=== PATIENT | female | born 1975 | race American Indian/Alaskan Native ===

== ENCOUNTER 2018-06-09 16:36 | Emergency (ER) | payer SELFPAY ==
[2018-06-09 16:47] VITALS: BP 161/77
--- NOTE | 2018-06-09 17:58 | Emergency Department Report ---
ED Review of Systems ROS: Stated complaint: LEFT ELBOW INJURY Other details as noted in HPI ED Past Medical Hx - Past Medical History Previous Medical History?: No - Surgical History Past Surgical History?: Yes Additional Surgical History: , D&C - Social History Smoking Status: Current Every Day Smoker Substance Use Type: Alcohol Eye Injury Exam - Exam General: Vital signs noted. No distress. Alert and acting appropriately. ED Course Vital Signs 06/09/18 16:40 Temperature 98.4 F Pulse Rate 99 H Respiratory 16 Rate Blood Pressure 161/77 O2 Sat by Pulse 99 Oximetry Critical care attestation.: If time is entered above; I have spent that time in minutes in the direct care of this critically ill patient, excluding procedure time. ED Disposition Condition: Stable Referrals: PRIMARY CARE, [Primary Care Provider] - 3-5 Days
[2018-06-09] MEDS ORDERED: KEFLEX PO ONE (17:59)
[2018-06-09] MEDS ORDERED: TRIPLE ANTIBIOTIC TP ONE (17:59)
[2018-06-09] MEDS ORDERED: MOTRIN PO ONE (17:59)
--- NOTE | 2018-06-09 18:00 | Emergency Department Report ---
Abscess Boil HPI - HPI Chief Complaint: Skin/Abscess/Foreign Body Stated Complaint: LEFT ELBOW INJURY Time Seen by Provider: 06/09/18 17:51 Duration: 5 Days Location: Upper Extremity (left elbow) Severity: Severe (8/10 and sore) History: Yes Pain (left elbow.), Yes Purulent Drainage (left elbow), No Fever, No Numbness, No Foreign Body, No Previous History, No Insect Bite HPI: Patient reports that she injured her left elbow and she developed infection. She said it has been going on for 5 days. She said there was a boil there and she place warm compresses and it burst and large amount of pus came out but now she says she has scab to the site that is tender with some redness and small amount of pus. She denies any restriction in movement. She said initially she was having a lot of pain but now pain is only with movement at 8/10 and sore. Tetanus vaccine up-to-date 2 years ago. Denies any fever or chills. Denies any numbness or tingling to extremities. Denies any radiation of pain proximally or distally. Home Medications: Previous Rx's Medication Instructions Recorded Last Taken Type Ibuprofen [Motrin] 600 mg PO Q8H PRN #12 tablet 06/09/18 Unknown Rx Neomycin/Bacitracin/Polymyxinb 1 each TP BID 7 Days #5 oint.pack 06/09/18 Unknown Rx [Neosporin Ointment Packet] cephALEXin [Keflex] 500 mg PO Q8HR 10 Days #30 cap 06/09/18 Unknown Rx Allergies/Adverse Reactions: Allergies Allergy/AdvReac Type Severity Reaction Status Date / Time No Known Allergies Allergy Verified 06/09/18 16:44 ED Review of Systems ROS: Stated complaint: LEFT ELBOW INJURY Other details as noted in HPI Constitutional: denies: chills, fever ENT: denies: ear pain, throat pain, congestion Respiratory: denies: cough, shortness of breath, wheezing Cardiovascular: denies: chest pain, palpitations, edema, syncope Gastrointestinal: denies: nausea, vomiting, diarrhea Musculoskeletal: arthralgia (left elbow). denies: back pain, joint swelling, myalgia Skin: other (infection left elbow). denies: rash, lesions Neurological: denies: headache, numbness, paresthesias, confusion, abnormal gait , vertigo Hematological/Lymphatic: easy bruising ED Past Medical Hx - Past Medical History Previous Medical History?: No - Surgical History Past Surgical History?: Yes Additional Surgical History: , D&C - Family History Family history: hypertension - Social History Smoking Status: Current Every Day Smoker Substance Use Type: Alcohol - Medications Home Medications: Home Medications Medication Instructions Recorded Confirmed Last Taken Type Ibuprofen [Motrin] 600 mg PO Q8H PRN #12 tablet 06/09/18 Unknown Rx Neomycin/Bacitracin/Polymyxinb 1 each TP BID 7 Days #5 oint.pack 06/09/18 Unknown Rx [Neosporin Ointment Packet] cephALEXin [Keflex] 500 mg PO Q8HR 10 Days #30 cap 06/09/18 Unknown Rx ED Abscess Boil Physical Exam - Exam General: Vital signs noted. No distress. Alert and acting appropriately. Front/Back of Body, Lg (Color): 1 - Patient a 2 cm minimal induration, scabbed area to left elbow. No surrounding erythema, scant amount of pus with palpation. Tender to palpate. Good range of motion and left elbow and she reports some pain to movement. Size: 2 cm Exam: Yes Tenderness (left elbow), Yes Fluctuance (minimal induration, some fluctuance but areas are draining small amount of pus), Yes Normal Neurologic Exam (alert and oriented 3 with normal gait), Yes Normal Circulation (patient will good color, sensation, temperature and movement to extremities. +2 radial and ulnar pulses bilaterally. Capillary refill is less than 3 seconds), No Surrounding Cellulites/Erythema, No Lymphangitis, No Crepitation, No Heart Murmur (regular rate and rhythm) I & D Note - I & D Note I & D Note: Patient with 2 cm wound to left elbow with minimal induration and minimal fluctuance and areas already draining. Noted puslike drainage coming from site with scabbing. No need for incision and drainage of his ears are any draining. Patient tetanus vaccine is up-to-date less than 5 years. Wound cleansed with normal saline and Neosporin ointment followed by sterile gauze dressing. ED Course Vital Signs 06/09/18 16:40 Temperature 98.4 F Pulse Rate 99 H Respiratory 16 Rate Blood Pressure 161/77 O2 Sat by Pulse 99 Oximetry - Reevaluation(s) Reevaluation #1: 06/09/18 18:07 Patient received Keflex 500 mg by mouth and Motrin 800 mg by mouth emergency room for infection left elbow and pain to left elbow. No signs for septic joint Critical care attestation.: If time is entered above; I have spent that time in minutes in the direct care of this critically ill patient, excluding procedure time. ED Medical Decision Making - Medical Decision Making This is a 42-year-old female here reported that she has had an abscess from injury to her left elbow 5 days but is getting better but patient says that she thinks she needs an antibiotic because scabbed over and there is still some pus draining from site. She has no fever. Assessment/plan 1: Simple abscess-already draining small amount of pus. Area cleansed with normal saline and Neosporin ointment placed a site followed by sterile gauze dressing. Patient given Keflex 500 mg for infection and Motrin 800 mg of pain in emergency room without any adverse reaction. I discussed with patient her diagnosis and treatment plan and that she needs to follow-up with her primary care physician in 2-3 days for abscess to left elbow. She has no signs of septic joint and she is able to move her joint without any restrictions. She has no neurovascular compromise with good deal and ulnar pulses are 2+ and bounding. I discussed this with the patient and she voiced understanding. Patient discharged home to follow up with primary care in 2-3 days and given prescription for Keflex and Motrin. ED Disposition Clinical Impression: Simple abscess, Arthralgia of left elbow Disposition: -01 TO HOME OR SELFCARE Is pt being admited?: No Does the pt Need Aspirin: No Condition: Stable Instructions: Abscess (ED), Arthralgia (ED) Additional Instructions: Follow-up with primary care physician in 2-3 days and if you do not have one follow-up with outside Medical Center Apply warm compresses to affected area 3-4 times a day. Take Keflex for infection Take Motrin as prescribed for pain but please take with food as his medication cause irritation to stomach lining and/or nausea If area of cellulitis worsens, increase in pain and increase in swelling , fever and or chills, difficulty moving in left upper extremity, weakness please return to emergency room [facility] Prescriptions: cephALEXin [Keflex] 500 mg PO Q8HR 10 Days #30 cap Ibuprofen [Motrin] 600 mg PO Q8H PRN #12 tablet PRN Reason: Pain Neomycin/Bacitracin/Polymyxinb [Neosporin Ointment Packet] 1 each TP BID 7 Days #5 oint.pack Referrals: PRIMARY CARE, [Primary Care Provider] - 2-3 Days [facility] [Outside] - 2-3 Days Forms: Work/School Release Form(ED)
== END 2018-06-09 18:27 | disposition home or self-care (01) ==
LOC: ED 16:36
DX: L02.512 Cutaneous abscess of left hand (principal); F17.200 Nicotine dependence, unspecified, uncomplicated
CPT/HCPCS: 99282; A6250